=== PATIENT | male | born 1995 | race Caucasian/White ===

== ENCOUNTER 2024-06-18 02:57 | Inpatient (IN) | payer OTHER ==
[~2024-06-18] VITALS: Ht 182.9 cm; Wt 171.0 kg
[2024-06-18] VITALS (9 sets, daily range): BP systolic 138–175; BP diastolic 63–93
[2024-06-18] MEDS ORDERED: fentaNYL citrate 100 MCG/2 ML VIAL IV ONE (03:15)
[2024-06-18] MEDS ORDERED: DIPHTH,PERTUSS(ACELL),TET VAC 0.5 ML SYRINGE IM ONE (03:15)
[2024-06-18] MEDS ORDERED: CEFAZOLIN SODIUM 2 GM/20 ML SYR IV ONE (03:30)
[2024-06-18 03:46] LABS: HEMOGLOBIN 14.9 g/dL (12.0-18.0); MCV 90.4 fl (81-99)
[2024-06-18 03:49] LABS: BASOPHILS 1.3 % (0-2); EOSINOPHILS 0.3 % (0-6); HEMATOCRIT 44.5 % (35.0-50.0); LYMPHOCYTES 21.6 % (24-44); MCH 30.2 (27-36); MCHC 33.4 g/dl (30-36); MONOCYTES 5.9 % (0-12); NEUTROPHILS 70.9 % (39-80); PLATELET COUNT 324 K/uL (140-440); RBC 4.93 M/ul (4.3-5.7); RDW 13.7 (10.5-15.0)
[2024-06-18 04:01] LABS: ALBUMIN 3.6 g/dL (3.4-5.0); ALBUMIN/GLOBULIN RATIO 0.9 (1.1-2.4); ANION GAP 12.9 (7-21); BILIRUBIN, TOTAL 0.2 ng/dL (0.2-1.0); BUN/CREATININE RATIO 8.91 (6.0-28.6); CALCIUM 8.4 mg/dL (8.5-10.1); CREATININE, SERUM 1.01 mg/dL (0.70-1.30); POTASSIUM 3.9 mmol/L (3.5-5.1); PROTEIN, TOTAL 7.6 g/dL (6.4-8.2)
[2024-06-18 05:26] LABS: AMPHETAMINES, URINE NEGATIVE (NEGATIVE); BARBITURATES, URINE NEGATIVE (NEGATIVE); BENZODIAZEPINE, URINE NEGATIVE (NEGATIVE); BUPRENORPHINE, URINE NEGATIVE (NEGATIVE); CANNABINOID, URINE NEGATIVE (NEGATIVE); COCAINE, URINE POSITIVE (NEGATIVE); ECSTASY, URINE NEGATIVE (NEGATIVE); FENTANYL, URINE POSITIVE (NEGATIVE); METHADONE, URINE NEGATIVE (NEGATIVE); OPIATES, URINE NEGATIVE (NEGATIVE); OXYCODONE, URINE NEGATIVE (NEGATIVE); PHENCYCLIDINE, URINE NEGATIVE (NEGATIVE)
[2024-06-18] MEDS ORDERED: MIDAZOLAM HCL 2 MG/2 ML VIAL ONE (05:29)
[2024-06-18] MEDS ORDERED: fentaNYL citrate 100 MCG/2 ML VIAL ONE ×2 (05:29→06:05)
[2024-06-18] MEDS ORDERED: Ropivacaine HCl 0.5% 30 ML VIAL ONE (05:29)
[2024-06-18] MEDS ORDERED: LIDOCAINE HCL 2% 5 ML SDV ONE (05:29)
[2024-06-18] MEDS ORDERED: ROCURONIUM BROMIDE 50 MG/5 ML SYR ONE (06:05)
[2024-06-18] MEDS ORDERED: DEXAMETHASONE SOD PHOS 4 MG/ML VIAL ONE ×2 (06:05→06:38)
[2024-06-18] MEDS ORDERED: SUCCINYLCHOLINE IN 0.9% NACL 200 MG/10 ML SYRINGE ONE (06:05)
[2024-06-18] MEDS ORDERED: dexmedeTOMIDine HCl 200 MCG/2 ML VIAL ONE (06:05)
[2024-06-18] MEDS ORDERED: propofoL 200 MG/20 ML VIAL ONE (06:05)
[2024-06-18] MEDS ORDERED: CEFAZOLIN SOD 1,000 MG/10 ML VIAL ONE (06:18)
[2024-06-18] MEDS ORDERED: ondansetron HCL 4 MG/2 ML VIAL ONE (06:38)
[2024-06-18] MEDS ORDERED: ACETAMINOPHEN 1,000 MG/100 ML VIAL ONE (06:38)
[2024-06-18] MEDS ORDERED: IBLOOD GLUCOSE TEST STRIP 1 EA TEST VI PRN (07:15)
[2024-06-18] MEDS ORDERED: KETOROLAC TROMETHAMINE 30 MG/ML VIAL IV PRN (07:15)
[2024-06-18] MEDS ORDERED: fentaNYL citrate 50 MCG/ML SDV IV PRN (07:15)
[2024-06-18] MEDS ORDERED: ondansetron HCL 4 MG/2 ML VIAL IV PRN (07:15)
[2024-06-18] MEDS ORDERED: HYDROmorphone HCL 1 MG/ML SYR IV PRN (07:15)
[2024-06-18] MEDS ORDERED: NALOXONE HCL 0.4 MG SYR IV PRN (07:15)
[2024-06-18] MEDS ORDERED: KETOROLAC TROMETHAMINE 15 MG/ML VIAL IV PRN (07:30)
[2024-06-18] MEDS ORDERED: OXYCODONE HCL 5 MG TAB PO PRN (07:30)
--- NOTE | 2024-06-18 07:49 | NUR ---
06/18/24 0749 Maria Guadalupe Rosa 0731-PT ARRIVES TO PACU ON 6L VIA MASK. PT IS NONAROUSABLE TO VERBAL SITMULI. RESP EVEN AND UNLABORED. 0735-PT REACTIVE. RESP EVEN AND UNLABORED. PT SHAKES HEAD YES WHEN ASKED IS DOING OK. O2 SAT AT 100% ON 6L VIA MASK. ANOTHER PILLOW PLACED UNDER LEFT LEG. 0743-PT IS REACTIVE TO VERBAL STIMULI. RES[ EVEN AND UNLABORED. O2 SAT AT 100% ON L VIA MASK. ICE PLACED ON L ANKLE. 0748-PT RESTING WITH EYES CLOSED. RESP EVEN AND UNLABORED. O2 SAT AT 100% ON 6 L VIA MASK.
--- NOTE | 2024-06-18 08:22 | NUR ---
PT TO FLOOR VIA STRETCHER WITH AMINTA LEE. PT RESTING WITH EYES CLOSED BUT ANSWERS QUESTIONS APPROPRIATLY . TOOK SMALL SIP OF WATER. FAMILY SPOKE WITH HIM AND THEN LEFT TO LET HIM REST.
[2024-06-18] MEDS ORDERED: cefuroxime axetiL 500 MG TAB PO SCH (09:00)
[2024-06-18] MEDS ORDERED: SENNOSIDES 1 TAB PO SCH (09:00)
--- NOTE | 2024-06-18 09:15 | NUR ---
PT BACK FROM O/R FAMILY PRESENT X2. PT IS ALERT BUT DROWSY ANSWERS QUESTIONS APPROPRIATELY ORIENTED TO ROOM. BED ALARM IS SET FOR SAFETY AT THIS TIME. FRESH H20 TO BEDSIDE PT TOLERATING SIPS. DENIES PAIN OR NEEDS OF SLEEPS EASILY. SATS 90% ON ROOM AIR PULSE OX IN PLACE
--- NOTE | 2024-06-18 11:39 | NUR ---
PT ALERT NOW, AWAKE WATCHING TV ASKING WHEN HE CAN GO HOME. SNACK PROVIDED ANTICPATES LUNCH AT NOON. LEFT LE STARTING TO WAKE UP "HURTS A LITTLE' PAIN CONTROL EDUCATION PROVIDED UNDERSTANDING VERBALED.
[2024-06-18] MEDS ORDERED: SEVOFLURANE 250 ML BTL INH ONE (14:56)
--- NOTE | 2024-06-18 15:13 | NUR ---
PT RESTING IN BED WATCHING TV STATES THE SENSATION IS COMING BACK TO HIS LLE STARTING TO FEEL MORE NORMAL, HURTS A LITTLE. TORDOL ADMINISTERED EDUCATION PROVIDED. FRESH H20 TO BEDSDIE CALL LIGHT IN REACH
--- NOTE | 2024-06-18 15:21 | NUR ---
DR JONES CONTACTED REQUEST FOR P/T HE AGREES.
--- NOTE | 2024-06-18 16:33 | NUR ---
PT WORKS WITH P/T RETURNS TO RESTING IN BED LLE ELEVATED ON PILLOW.
--- NOTE | 2024-06-18 20:06 | NUR ---
RECEIVED REPORT FROM JUDI CONNELL. PT RESTING IN BED, (L) BOOT IN PLACE WITH ICE AT THIS TIME. PT DENIES ANY NEEDS AT THIS TIME. CALL LIGHT WITHIN REACH. PT STATES HE DOES HAVE SOME FRIEND COMING TO DELIVER FOOD INQUIRING ABOUT VISITING HOURS. PT ALLOWED TO REST - ASSURED WILL BE BACK LATER TO ASSESS. PT DENIES FURTHER NEEDS AT THIS TIME.
--- NOTE | 2024-06-18 20:30 | NUR ---
PT RESTING IN BED, FRIEND PRESENT AT BEDSIDE. PT TALKING WITH FRIEND ON THE PHONE. ASSESSMENT COMPLETED, FRESH ICE PACK APPLIED TO THE SURGICAL FOOT, BOOT REMAINS IN PLACE. PT C/O PAIN, PRN TORADOL GIVEN - SEE MAR. PT DENIES ANY FURTHER NEEDS AT THIS TIME, CALL LIGHT WITHIN REACH.
--- NOTE | 2024-06-18 23:14 | NUR ---
PT RESTING, AWAKENED WHEN ENTERED ROOM. PT STATES (L) ANKLE PAIN 7/10 AT THIS TIME, PRN MEDS GIVEN - SEE MAR. PT DENIES ANY FURTHER NEEDS AT THIS TIME. CALL LIGHT WITHIN REACH. WILL CONTINUE TO MONITOR.
[2024-06-19] VITALS (9 sets, daily range): BP systolic 140–153; BP diastolic 56–92
--- NOTE | 2024-06-19 00:13 | NUR ---
PT RESTING IN BED AT THIS TIME, EYES CLOSED, DID NOT AWAKEN WHEN OPENED DOOR, ALLOWED TO REST. RESPIRATIONS UNLABORED. CALL LIGHT WITHIN REACH. WILL CONTINUE TO MONITOR.
--- NOTE | 2024-06-19 03:14 | NUR ---
PT RESTING AT THIS TIME, NO NEEDS. CALL LIGHT WITHIN REACH. RESPIRATIONS UNLABORED. WILL CONTINUE TO MONITOR.
--- NOTE | 2024-06-19 04:47 | NUR ---
PT RESTING IN BED, SNORING WHEN ENTERED ROOOM, PT DID NOT AWAKEN. CALL LIGHT WITHIN REACH, ALLOWED TO SLEEP. WILL CONTINUE TO MONITOR.
--- NOTE | 2024-06-19 07:43 | NUR ---
PT WATCHING TV AT TIME OF SHIFT REPORT. AGREES HE IS COMFORTABLE, DENIES QUESTIONS OR CONCERNS. FRESH H20 TO BEDSIDE CALL LIGHT IN REACH
--- NOTE | 2024-06-19 08:25 | NUR ---
Patient was resting in bed. Requested to take a nap.
--- NOTE | 2024-06-19 09:18 | NUR ---
PT WORKING WITH P/T. HE IS COOPERATIVE AND ACTIVELY PARTICIPATES
[2024-06-19] MEDS ORDERED: OXYCODONE HCL5 MG PO (09:19)
[2024-06-19] MEDS ORDERED: CEFUROXIME500 MG PO (09:19)
[2024-06-19] MEDS ORDERED: SENNA LAX8.6 MG PO (09:19)
--- NOTE | 2024-06-19 10:23 | NUR ---
ALERT AND ORIENTED IN BED. STATES HE LIVES IN SINGLE LEVEL HOME WITH STAIRS TO GET INSIDE. NOTIFIED BY PT THAT PATIENT IS VERY UNSTABLE ON CRUTCHES AND THEY DO NOT FEEL HE IS READY TO DC. LIKELY NEED FOR WALKER TO ASSIST WITH MOBILITY. PATIENT STATES HE HAS SPOKEN WITH HIS MOTHER, SHE COULD COME PICK HIM UP TOMORROW AND TAKE HIM TO HER PLACE IN [facility]. SHE DOES HAVE STAIRS TO GET INSIDE, BUT HE STATES THERE ARE HANDRAILS. STATES THE BED THERE IS ALSO HIGHER THAN HIS BED AT HOME, SO IT SHOULD BE EASIER FOR HIM TO GET IN AND OUT OF. HE STATES SHE WILL BE UNABLE TO PICK HIM UP UNTIL TOMORROW AT THE SOONEST. PT PLANS TO RE-EVALUATE HIM THIS AFTERNOON. INFORMATION FOR [employer] FOR WALKER PROVIDED. PATIENT STATES HE DOES HAVE INSURANCE, BUT IS UNSURE WHAT IT IS. HIS PCP IS IN [facility]. DENIES DIFFICULTY PAYING UTILITES, OBTAINING FOOD OR MEDS.
--- NOTE | 2024-06-19 11:00 | NUR ---
REVIEWED PAIN CONTROL AND MEDS AVAILABLE WITH PT. UNDERSTANDING VERBALIZED. PT DESCRIBES AN ACHE IN HIS LLE STATES IT'S TOLERABLE AND YES PAIN MEDS ARE EFFECTIVE. RESTING IN BED LLE ELEVATED ON PILLOWS AT THIS TIME. FRESH H20 TO BEDSIDE CALL LIGHT IN REACH
--- NOTE | 2024-06-19 11:56 | NUR ---
VISITED DURING SPIRITUAL CARE ROUNDS. PT IN OVERALL GOOD SPIRITS, NO IMMEDIATE NEEDS. VALIDATION MANAGER PROVIDED SUPPORTIVE PRESENCE, HOSPITALITY, PRAYER, FACILITATED INTERACTION WITH THERAPY ANIMAL. PT EXPRESSED GRATITUDE.
--- NOTE | 2024-06-19 12:05 | NUR ---
PT WORKING WITH P/T AT THIS TIME. USING A WALKER INSTEAD OF CRUTCHES TO SEE IF PT HAS BETTER BALANCE THAT WAY.
--- NOTE | 2024-06-19 13:02 | OR ---
[facility] [address] [place], [place] [address] Signed DATE OF OPERATION: 06/18/2024 SURGEON: Nathan Harp MD PREOPERATIVE DIAGNOSIS: Fracture dislocation, grade 3 ankle, left. POSTOPERATIVE DIAGNOSIS: Fracture dislocation, grade 3 ankle, left. PROCEDURES PERFORMED: 1. Left ankle irrigation and debridement of skin, subcutaneous tissue and bone. 2. Open reduction and internal fixation of lateral malleolus. 3. Open reduction and internal fixation of syndesmosis. FITTER HAND: Lias Ovalles PA-C. Lisa was present and critical for all portions of procedure. ANESTHESIA: General. BLOOD LOSS: 100 mL. TOURNIQUET TIME: Zero. IMPLANTS: Seven hole one-third tubular plate with seven screws and tightrope. BRIEF HISTORY: Daylin is a 28-year-old gentleman who was at a local drinking facility when he twisted on his foot, ending up with an open fracture dislocation of the ankle. He was transported to the hospital where radiographs showed the fracture dislocation and a large amount of bone sticking through the wound medially. Risks, benefits, and alternatives of surgery were discussed with him. He understood and wished to proceed. DESCRIPTION OF PROCEDURE: Once consent was obtained, he was taken to the operating room. After adequate Electronically Signed By: NATHAN HARP MD 06/19/24 1302 PATIENT NAME: DAYLIN DOTSON OPERATIVE REPORT DATE OF : [birth year] REPORT #: [id number] PHYSICIAN: NATHAN HARP MD PCP: NO PRIMARY CARE PHYSICIAN REPORT IS CONFIDENTIAL AND NOT TO BE RELEASED WITHOUT AUTHORIZATION [facility] [address], [place] [address] Signed anesthesia he was placed on the operating room table. A well-padded proximal thigh tourniquet was placed. The leg was then prepped and draped in a standard sterile fashion. There was no significant active bleeding, so we elected to leave the tourniquet down to improve blood flow. The ankle was distracted and the medial laceration which measured 12 cm was sharply debrided and irrigated with 3 L normal saline followed by Surgiphor followed by another L of normal saline. The ankle was then reduced and a lateral approach was made to the fibula, carried through skin and subcutaneous tissue. The periosteum was already stripped over 90% of it and the remainder was elevated. The fracture was then reduced. It was essentially a transverse fracture and no inter frag lag screw could be placed. The fracture was held in reduction and a seven hole plate was fitted to the lateral malleolus and held with a screw in the proximal end and a screw in the distal end. This was then checked using image intensifier and found to be good. The remaining proximal screws were filled with 3.5 mm screws. The two distal screws were filled with fully-threaded cancellous 4-0 screws. Excellent purchase in his bone was obtained. Good reduction was noted. We then checked his ankle stability and his medial side opened significantly. I then repaired the deltoid with #1 FiberWire and attempted another external rotation. Knee was still a little bit unstable. We then placed a tightrope through one of the screw holes in the plate, tightening it up with the ankle in nuchal rotation. The ankle mortise was quite stable after this. The medial soft tissues were re-evaluated. I elected not to put an anchor in to repair the deltoid due to the large open dislocation. The both wounds were closed in layers using 2-0 Monocryl followed by awais for the skin. Prior to this, we did re-irrigate both sides with Surgiphor and normal saline. Both wounds were dressed with Acticoat-7 dressings, Zak wrap, and he was placed in a fracture boot. He tolerated the procedure well. All sponge, needle, and instrument counts were correct. Nathan Harp MD BA/ZAIREL /[id number] Electronically Signed By: NATHAN HARP MD 06/19/24 1302 PATIENT NAME: DAYLIN DOTSON OPERATIVE REPORT DATE OF : [birth year] REPORT #: [id number] PHYSICIAN: NATHAN HARP MD PCP: NO PRIMARY CARE PHYSICIAN REPORT IS CONFIDENTIAL AND NOT TO BE RELEASED WITHOUT AUTHORIZATION [address] [address] Signed Copies: ~ Electronically Signed By: NATHAN HARP MD 06/19/24 1302 PATIENT NAME: DAYLIN DOTSON OPERATIVE REPORT DATE OF : [birth year] REPORT #: [id number] PHYSICIAN: NATHAN HARP MD PCP: NO PRIMARY CARE PHYSICIAN REPORT IS CONFIDENTIAL AND NOT TO BE RELEASED WITHOUT AUTHORIZATION
--- NOTE | 2024-06-19 14:42 | NUR ---
PT ASSISTED TO CHAIR USES WALKER NWB. BED LINENS CHANGED. ASSISTED PT TO WASH HIS BACK, LEG, AND AREA'S HE IS UNABLE TO REACH, HE INSISTS HE CAN DO HIS OWN JENNIFER AND OTHER CARES. WARM BATH CLOTHES PROVIDED. ORAL CARE ITEMS IN REACH DEODORANT, COMB ETC SUPPLIED.
--- NOTE | 2024-06-19 15:08 | NUR ---
Patient took a bed bath with minimal assistance. Bed linens were changed. Deodorant and oral care supplies set up. Clean gown provided.
--- NOTE | 2024-06-19 15:23 | NUR ---
PT UP WITH P/T
--- NOTE | 2024-06-19 18:52 | NUR ---
Patient urinal emptied and rinsed. Left ankle elevated with an ice pack on.
--- NOTE | 2024-06-19 20:03 | NUR ---
PT RESTING IN BED, FAMILY WAS PRESENT IN THE ROOM. PT HAS [place] PAID LEAVE PAPERWORK HE WOULD LIKE FILLED OUT, WILL FOLLOW-UP WITH MD TOMORROW MORNING IF THAT IS SOMETHING HE CAN FILL OUT FOR HIM. PRIMARY RN NOTIFIED. PRN TORADOL GIVEN FOR 6/10 PAIN TO (L) ANKLE. OTHER MEDS GIVEN - SEE MAR. PT DENIES ANY FURTHER NEEDS, CALL LIGHT WITHIN REACH.
--- NOTE | 2024-06-19 22:10 | NUR ---
pt in bed, room air, hob elevated, lungs clear, abd large LBM yesterday. L leg edema to ankles/feet, warm to tocuh. alfredo wrap dressing in place, ortho boot inplace, ice to area. pleasant and cooperative, was medicated earlier. No c/o pain at this time
--- NOTE | 2024-06-19 23:22 | NUR ---
AWAKE, SITTING UP POSITION IN BED. L LEG ORTHO BOOT IN PLACE ICE TO AREA, ELEVATED. NO C/O PAIN. VISITING WITH FAMILY
[2024-06-20] VITALS (11 sets, daily range): BP systolic 136–153; BP diastolic 62–96
--- NOTE | 2024-06-20 02:08 | NUR ---
AWAKE, WATCHING TV AND PLAYING ON HIS PHONE. C/O L LEG PAIN, MEDICATED WITH 10MG PO DILAUDID. L LEG MIGDALIA WRAP DRESSING IN PLACE, EDEMA TO TOES, FAINT PEDAL PULSE, WARM TO TOUCH. ORTHO BOOT INPLACE, ICE TO AREA, ELEVATED WITH 3 PILLOWS. TOLERATING POP AND LIQUIDS, NO C/O N/V. NO VOID. PLEASNT AND COOPERATIVE
--- NOTE | 2024-06-20 03:05 | NUR ---
RN IN ROOM TO RESPOND TO CALL LIGHT - PT REPORTS PAIN IN MEDIAL LOWER HEEL OF LEFT FOOT. INSPECTION UNDER EDGE OF DRESSING SHOWS SKIN INTACT WITHOUT CONCERN, DISTAL PART OF INCISION IN AREA OF NEW PAIN. PT REPORTS INCREASING FEELING OF FOOT RETURNING - EDUCATED ON SENSATION POST OP. DENIES FURTHER NEEDS AT THIS TIME. BOOT REMAINS IN PLACE AND ELVATED ON PILLOWS IN BED.
--- NOTE | 2024-06-20 03:30 | NUR ---
Awake, playing with phone, no further c/o pain. L leg elevated with pillows, ice to area.
--- NOTE | 2024-06-20 04:43 | NUR ---
awake, watching tv, c/o 7/10 L ankle pain, medicated with Toradol 15mg IV. L leg ortho boot in place, ice to area, elevated with pillows, repositions self in bed
--- NOTE | 2024-06-20 05:12 | NUR ---
15MG TORADOL IV GIVEN. PT CAN HAVE UP TO 30MG. WAS GIVEN 15MG A FEW MINUTES AGO WITH NO PAIN RELIEF. ICE TO L ANKLE, DRESSING CDI, ORTHO BOOT IN PLACE
--- NOTE | 2024-06-20 06:36 | NUR ---
Pt c/o 9/10 L leg pain, very anxious. medicated with Oxycodone 10mg po. ortho boot in place, ice to area, elevated in pillows
--- NOTE | 2024-06-20 08:00 | NUR ---
PATIENT IN BED AT THIS TIME. WHITE BOARD UPDATED. CALL LIGHT IN REACH. NO FURTHER NEEDS AT THIS TIME.
--- NOTE | 2024-06-20 10:00 | NUR ---
Admin oxycodone 10mg po at this time for reports of 9/10 left ankle pain. Fresh ice placed over LLE. Patient sitting up in chair at this time. Fresh water and call light within reach of pt.
--- NOTE | 2024-06-20 11:05 | NUR ---
Admin toradol 15mg iv at this time for reports of 6/10 left ankle pain.
--- NOTE | 2024-06-20 11:07 | NUR ---
Admin toradol 15mg iv for reports of 6/10 left ankle pain.
--- NOTE | 2024-06-20 11:49 | NUR ---
PATIENT UP IN CHAIR. NO NEEDS AT THIS TIME. CALL LIGHT IN REACH.
--- NOTE | 2024-06-20 14:09 | NUR ---
PATIENT ALERT AND ORIENTED IN RECLINER. STATES HE IS STILL STRUGGLING TO GET AROUND WITH MOVEMENT. STATES HE IS HAVING RAMP BUILT, HAS A KNEE SCOOTER ORDERED, WALKER, AND TUB BENCH THAT HIS MOTHER ORDERED FOR PATIENT FOR HOME. CONTINUE TO PLAN TO WORK WITH PT TODAY AND TOMORROW.
--- NOTE | 2024-06-20 14:17 | NUR ---
Patient back in bed from chair, no notable distress. Patient report's 7/10 Left ankle pain. Admin oxycodone 10mg po at this time. Fresh ice over wound site. CMS remains intact, boot in place to LLE.
--- NOTE | 2024-06-20 17:19 | NUR ---
Toradol 30mg iv admin for reported 7/10 LLE pain.
--- NOTE | 2024-06-20 19:33 | NUR ---
SHIFT REPORT RECEIVED FROM DAYSLAFT AMINTA OSBORNE AT BEDSIDE, pt RESTING QUIETLY IN BED WITH EYES CLOSED. ON RA, RR EVEN AND UNLABORED. AWOKE TO VOICE, MIGDALIA WRAP DRESSING TO LLE C/D/I, ELEVATED IN BED WITH ORTHO BOOT IN PLACE AND FRESH ICE PACK ON TOP OF DRESSING. IV SITE WNL, SALINE LOCKED. NO NEEDS OR CONCERNS VERBALIZED, CALL LIGHT IN REACH.
--- NOTE | 2024-06-20 20:25 | NUR ---
ASSESSMENT COMPLETE, SCHEDULED MEDS GIVEN-SEE EMAR. pt A/OX4, RATES PAIN 11/23. LLE ELEVATED IN BED WITH ICE PACK IN PLACE OVER DRESSING WITH BOOT IN PLACE. pt ABLE TO WIGGLE TOES, REPORTS SOME NUMBNESS AND TINGLING TO LLE. SKIN PINK IN COLOR AND WARM TO THE TOUCH, CAP REFILL WNL. MIGDALIA DRESSING C/D/I. VSS, FRESH ICE WATER GIVEN. NO ADDITIONAL NEEDS OR CONCERNS VERBALZIED, CALL LIGHT IN REACH.
[2024-06-20] MEDS ORDERED: GABAPENTIN 300 MG CAP PO SCH (21:00)
[2024-06-20] MEDS ORDERED: ASPIRIN 325 MG TAB PO SCH (21:00)
--- NOTE | 2024-06-20 21:37 | NUR ---
ROUNDED ON pt, pt RESTING IN BED. NO NEEDS OR CONCERNS VEBALIZED AT THIS TIME WHEN ASKED. CALL LIGHT IN REACH.
--- NOTE | 2024-06-20 23:35 | NUR ---
rounded on pt, pt resting quietly in bed. on ra, rr even and unlabored. new ice pack on top of left ankle dressing, ortho boot remains in place. elevated in bed. no additional needs or concerns verbalized when asked.
[2024-06-21] VITALS (10 sets, daily range): BP systolic 129–154; BP diastolic 70–106
--- NOTE | 2024-06-21 01:40 | NUR ---
rounded on pt, pt awake and playing on cell phone. reports 6-7/10 pain, prn pain medication given-see emar. focused assessment complete, no acute changes. fresh ice water, soda provided along with warm blanket. no additional needs, fresh ice pack provided recently by courtney barlow.
--- NOTE | 2024-06-21 02:10 | NUR ---
IN ROOM AND REASSESSED pt PAIN, pt REPORTS PAIN "IS BETTER", DENIES NEEDS OR CONCERNS. CALL LIGHT IN REACH. LLE REMAINS ELEVATED WITH ORTHO BOOT IN PLACE AND ICE THERAPY. CALL LIGHT IN REACH.
--- NOTE | 2024-06-21 04:08 | NUR ---
rounded on pt, pt awake and resting in bed. ortho boot remains in place, ice therapy as tolerated. lle remains elevated in bed. certified surgical technologist to bring fresh soda to pt per pt request, no additional needs or concerns, pt stats, "i think this is the best sleep i've gotten in awhile". call light in reach, will continue to monitor.
--- NOTE | 2024-06-21 05:50 | NUR ---
PRN PAIN MEDICATION GIVEN-SEE EMAR. FRESH ICE PACK PROVIDED OVER MIGDLAIA WRAP DRESSING TO LEFT ANKLE, ORTHO BOOT REMAINS IN PLACE, NO ACUTE CHANGES NOTED TO LLE. CALL LIGHT IN REACH, pt STATES, "I'VE BEEN DOING LEG EXERCISES LIKE THEY SAID TO DO". LLE REMAISN ELEVATED IN BED WITH PILLOWS.
--- NOTE | 2024-06-21 07:58 | NUR ---
Patient resting in bed, eyes closed, respirations even and non labored. Patient has no notable distress. Personal supplies and call light within reach.
--- NOTE | 2024-06-21 09:05 | NUR ---
Patient's urinal emptied and rinsed. PT entered room. Help was offered and declined.
--- NOTE | 2024-06-21 09:19 | NUR ---
Patient working with physical therapy.
--- NOTE | 2024-06-21 09:51 | NUR ---
SPOKE WITH PATIENT REGARDING POTENTIAL DISCHARGE TODAY. STATES HE WOULD PREFER TO STAY ONE MORE NIGHT IN FACILITY BECAUSE HIS MOM CAN NOT PICK HIM UP UNTIL TOMORROW AND HE WOULD HAVE TO SLEEP ON HIS UNCLE'S COUCH IF HE GOES THERE. INFORMED ONCE DR. JONES STATES HE IS MEDICALLY CLEARED, HE NO LONGER MEETS CRITERIA TO BE IN THE HOSPITAL AND WILL HAVE TO DISCHARGE. INSTRUCTED TO CALL AND HAVE SOMEONE TAX ECONOMIST A WALKER AT [facility] FOR DISCHARGE SO SHE HAS WHAT HE NEEDS. TOLD HIM TO SPEAK WITH DR. JONES REGARDING DC IF HE FEELS HE IS NOT READY FOR DC TODAY.
--- NOTE | 2024-06-21 13:15 | NUR ---
ERYN IRVING, DISCUSSES POTENTIAL NEED FOR SNF. DISCUSSED SNF OPTION WITH PATIENT. STATES HIS MOTHER HAS MEDICAL EXPERIENCE AND WILL HAVE WHAT HE NEEDS. HE DOES NOT WANT TO GO TO A SNF, HE IS STILL PLANNING ON DISCHARGING WITH HIS MOTHER TOMORROW. INFORMED HIM INSURANCE INFORMATION IS STILL NEEDED AND REQUEST HE HAVE SOMEONE SEND HIM HIS POLICY INFORMATION SO IT MAY BE ENTERED BY ADMITTING. STATES HE WILL TEXT HIS AUNT TO HAVE HER SEND THE INFORMATION TO HIM. DENIES OTHER NEEDS AT THIS TIME.
--- NOTE | 2024-06-21 13:15 | NUR ---
Patient sitting up in chair, no distress. LLE elevated, boot in place. Patient denies needs at this time. Call light within reach.
--- NOTE | 2024-06-21 14:19 | NUR ---
Patient back in bed, awake with no distress. Pt reports 6/10 LLE pain. Admin oxycodone 10mg po at this time. Cms intact to LLE, boot in place.
--- NOTE | 2024-06-21 14:25 | NUR ---
UR CONCURRENT REVIEW: [facility] [place] MEETS INPATIENT CRITERIA FOR OPEN FRACTURE WITH ORIF. CHANGE TO INPT STATUS PER MD SELF PAY OBS TO INPT 06/21/24 @ 130 NO AUTH REQUIRED PATIEN IS SELF PAY DISCHARGE TO HOME WHEN STABLE 06/23/24
--- NOTE | 2024-06-21 14:46 | NUR ---
Patient worked with PT, sat up in their chair, and later returned to bed. Bed bath supplies were brought in. Some assist was needed for patient's back and legs but was independent for the rest. Bed linens were changed.
--- NOTE | 2024-06-21 15:45 | NUR ---
REPORT RECEIVED FROM PREVIOUS NURSE DYLON. PT. RESTING IN BED WITH NO NEEDS AT THIS TIME. CALL LIGHT WITHIN REACH.
--- NOTE | 2024-06-21 16:48 | NUR ---
Patient's urinal emptied, rinsed, and returned to bedside table. Fresh ice water and sprite were given.
--- NOTE | 2024-06-21 18:15 | NUR ---
Patient was given a clean gown. Urinal was emptied and rinsed. They refused dinner but ate cheese sticks and snacks from friends.
--- NOTE | 2024-06-21 18:15 | NUR ---
ROUNDING ON PATIENT. DENIES ANY NEEDS AT THIS TIME CALL LIGHT WITHIN REACH.
--- NOTE | 2024-06-21 19:30 | NUR ---
RECEIVED REPORT FROM AMINTA HERNANDES. PT RESTING IN BED, SLEEPING BETWEEN CARE. DENIES NEEDS AT THIS TIME.
--- NOTE | 2024-06-21 20:00 | NUR ---
PT RESTING IN BED. REPORTS LEFT ANKLE PAIN 11/23-PRN OXYCODONE ADMINISTERED AND NEW ICE BAG PLACED. LSC. HRR. BTA, REPORTS CONSTIPATION AND WANTS TO TRY BR A LITTLE LATER. VOIDS VIA URINAL-UO CLEAR AND YELLOW. LLE W/ NUMBNESS AND TINGLING. LLE MIGDALIA WRAP CDI. PT UNABLE TO PLANTAR/DORSI FLEX. WIGGLES TOES, LLE PINK AND WARM. SURGICAL WALKING BOOT TO LLE. NWB LLE. USES CRUTCHES TO AMBULATE. RAC SL WNL. USES CALL LIGHT APPROPRIATELY.
--- NOTE | 2024-06-21 20:52 | NUR ---
RADIAL DRILL PRESS SET UP OPERATOR OBTAINED VITALS. NO NEW I&O AT THIS TIME. PT STATES NO NEEDS AT THIS TIME. CALL LIGHT WITHIN REACH.
--- NOTE | 2024-06-21 22:28 | NUR ---
PT APPEARS ASLEEP. CALL LIGHT WITHIN REACH.
--- NOTE | 2024-06-22 00:35 | NUR ---
PT SLEEPING. APPEARS COMFORTABLE.
--- NOTE | 2024-06-22 02:55 | NUR ---
CALL LIGHT ANSWERED. PT NEEDED URINAL EMPTIED. PT REQUESTED A PAIN MED, RN NOTIFED. ICE WATER REFILLED. PT STATES NO FURTHER NEEDS AT THIS TIME. CALL LIGHT WITHIN REACH.
--- NOTE | 2024-06-22 03:07 | NUR ---
PT AWAKE, REQUESTING PAIN MED. PRN OXYCODONE ADMINISTERED. PT STILL HAS N/T TO LLE, UNCHANGED. ORTHO BOOT IN PLACE. NEW ICE BAG PLACED TO LEFT ANKLE.
--- NOTE | 2024-06-22 05:31 | NUR ---
SLEEPING SOUNDLY. APPEARS COMFORTABLE.
[2024-06-22 05:37] VITALS: BP 147/75
--- NOTE | 2024-06-22 05:40 | NUR ---
PARKS AND RECREATION MANAGER OBTAINED VITALS AND I&O. URINAL EMPTIED. PT STATES NO FURTHER NEEDS AT THIS TIME. CALL LIGHT WITHIN REACH.
[2024-06-22 05:46] VITALS: BP 147/75
--- NOTE | 2024-06-22 07:39 | NUR ---
REPORT RECEIVED FROM SENIOR PROGRAM PLANNER RN. PATIENT RESTING IN BED WITH BOOT IN PLACE. ICE TO LEFT LOWER EXTERMITY. PATIENT C/O PAIN 11/23 TO LLE. PRN ADMINSTERED. PATIENT DENIES ANY FURTHER NEEDS AT THIS TIME. CALL LIGHT WITHIN REACH.
--- NOTE | 2024-06-22 08:45 | NUR ---
INTO SEE PATIENT. PATIENT UP IN BED ON HIS PHONE. PATIENT SAYS MOM IS HEADING TO [place] TODAY FROM [place]. HE SAYS SHE IS COMING TO DISCUSS OPTIONS OF INPATIENT REHAB VERSUS GOING HOME BUT HE THINKS SHE IS JUST COMING TO GET HIM TO TAKE HIM HOME. THEY HAVE CALLED THE LOCAL FIRE DEPARTMENT FOR LIFT ASSIST IF HE NEEDS IT WHEN HE GETS TO THE [place]IDENCE. HE TOLD ME HIS PCP IS LORENA HINES. HE DOES NOT KNOW OF ANY ORTHO IN THE AREA TO CALL HIS MOTHER ABOUT THIS. MOTHER NAME ALVIN PHONE NUMBER [phone]. WILL CALL [phone] 06/22/24 [employer] CALLED ABOUT INSURANCE. TALKED TO [employer] INSURANCE/LIDAR TECHNICIAN SAYS PATIENT HAS BEEN AN EMPLOYEE SINCE 2022 BUT JUST RECENTLY SIGNED UP FOR BENEFITS AND THAT HIS BENEFITS DONT TAKE IN EFFECT UNTIL 07/15/24. KAREN MEDICAID COORDINATOR AT THE HOSPITAL DOWN TO SEE IF PATIENT QUALIFIES. PATIENT MAKES $5,000 A MONTH AND DOES NOT QUALIFY. [id number] 06/22/24 CALLED ALVIN (MOTHER) SHE WAS JUST GETTING READY TO LEAVE TO HEAD TO [place]. SHE SAYS SHE HAS A RAMP COMING FROM [employer] THAT WILL BE AT THE HOUSE TOMORROW AND WILL BE SETUP. IT IS AN 8FT RAMP. DISCUSSED CONCERNS OF RAMP THAT OT/PT HAD. SHE SAYS BARIATRIC WHEELCHAIR WILL FIT ON RAMP. THEY HAVE TWO NEIGHBORS WILLING TO BE THERE WHEN PATIENT ARRIVES AND HAVE ALREADY CONTACTED NON EMERGENT LINE TO LET THEM KNOW THEY MAY NEED TO DO A LIFT ASSIST. SHE SAYS SHE HAS GATHERED AT BARIATRIC WHEELCHAIR, BARIATRIC WALKER, [employer], TUB BENCH, KNEE SCOOTER. MOTHER HAS WORKED FOR PCP LORENA HINES SO SHE IS AWARE OF THE SITUTAION. MOTHER WAS GOING TO CONTACT [facility]ISA [facility] OFFICE TO SCHEDULE A FOLLOW UP APPOINTMENT.
--- NOTE | 2024-06-22 08:50 | NUR ---
PATIENT RESTING IN BED. REPORTS HE IS NOT HUNGRY THIS AM AND DOES NOT WISH TO HAVE BREAKFAST. PATIENT WITH BOOT IN PLACE TO LLE. POSITIVE CMS TO BLLE. PATIENT LUNGS CTA, HEART TONES REGULAR. PATIENT DENIES ANY FURTHER NEEDS. CALL LIGHT WITHIN REACH.
--- NOTE | 2024-06-22 08:56 | NUR ---
Fresh ice water given. Patient refused breakfast but has lots of snacks in the room. Patient reported they just wanted to sleep. AMINTA Oden notified and entered room.
[2024-06-22 09:04] VITALS: BP 149/76
[2024-06-22 09:05] VITALS: BP 149/76
--- NOTE | 2024-06-22 09:44 | NUR ---
PATIENT RESTING IN BED, RN OFFERED TO ASSIST PATIENT TO THE RECLINER. PATIENT REFUSED WANTING TO GET OUT OF BED AT THIS TIME. REPORTS HE WILL TRY FOR LUNCH TIME. DENIES ANY FURTHER NEEDS. CALL LIGHT WITHIN REACH.
--- NOTE | 2024-06-22 10:38 | NUR ---
NEW BAG OF ICE APPLIED TO LLE. URINAL EMPTIED. PATIENT WITH NO FURTHER NEEDS AT THIS TIME. CALL LIGHT WITHIN REACH.
--- NOTE | 2024-06-22 10:55 | NUR ---
PCP APPOINTMENT MADE FOR [facility]. 07/25/24 AT 3:00 PM
--- NOTE | 2024-06-22 11:10 | NUR ---
OCCUPATIONAL THERAPY IN ROOM WITH PATIENT AT THIS TIME.
--- NOTE | 2024-06-22 11:12 | NUR ---
Patient took a shower with OT. Help was offered and denied.
--- NOTE | 2024-06-22 11:24 | NUR ---
DR. LISA MCMAHAN OFFICE CALLED ASKED FOR A REFERRAL. [facility]AM[facility] VELAZQUEZ. WILL FAX OVER ONCE DOCUMENTATION IS READY. FAX NUMBER [phone].
--- NOTE | 2024-06-22 12:06 | NUR ---
PATIENT MOTHER AWARE THAT HE IS DISCHARGING TODAY AND THAT SHE HAS AN ADA ROOM WITH WHEELCHAIR. NO FUTHER QUESITIONS AT THIS TIME. WILL FAX REFERRAL OVER ONCE DC SUMMARY FINISHED.
--- NOTE | 2024-06-22 12:16 | NUR ---
PATIENT SITTING UP IN RECLINER EATING LUNCH. C/O PAIN PRN ADMINSTERED. SEE MAR. ICE WATER REFILLED. PATIENT DENIES ANY FURTHER NEEDS. CALL LIGHT WITHIN REACH.
[2024-06-22] MEDS ORDERED: ASPIRIN325 MG PO (12:19)
[2024-06-22] MEDS ORDERED: GABAPENTIN300 MG PO (12:19)
[2024-06-22] MEDS ORDERED: CEFUROXIME500 MG PO (12:19)
[2024-06-22] MEDS ORDERED: OXYCODONE HCL5 MG PO (12:19)
--- NOTE | 2024-06-22 12:34 | NUR ---
LIBRARY CATALOGING TECHNICIAN PACKET GIVEN.
--- NOTE | 2024-06-22 12:42 | NUR ---
REFERRAL SENT TO DR. LISA MCMAHAN OFFICE.
[2024-06-22] MEDS ORDERED: ACETAMINOPHEN 500 MG TAB PO PRN (12:45)
[2024-06-22 13:25] VITALS: BP 148/85
[2024-06-22 13:30] VITALS: BP 148/85
--- NOTE | 2024-06-22 13:35 | NUR ---
PT NOT AVAILABLE FOR VISIT. PROVIDED PRAYER.
--- NOTE | 2024-06-22 13:40 | NUR ---
PT SITTING UP IN THE CHAIR AT THIS TIME, SCHEDULE MEDS GIVEN - SEE MAR. PT DENIES ANY FURTHER NEEDS AT THIS TIME. CALL LIGHT WITHIN REACH.
--- NOTE | 2024-06-22 13:56 | NUR ---
Patient returned to bed from their chair. Urinal was emptied and rinsed.
[2024-06-22] MEDS ORDERED: IBUPROFEN 600 MG TAB PO SCH (14:00)
--- NOTE | 2024-06-22 14:42 | NUR ---
ROUNDING ON PATIENT. DENEIS ANY NEEDS AT THIS TIME. CALL LIGHT WITHIN REACH.
--- NOTE | 2024-06-22 16:06 | NUR ---
PATIENT RESTING IN BED AT THIS TIME. SCHEDULED MEDICATIONS ADMISNTERED. DENIES ANY FURTHER NEEDS. CALL LIGHT WITHIN REACH.
--- NOTE | 2024-06-22 17:58 | NUR ---
PT MOTHER ARRIVED TO THE FLOOR, STATING THAT THE HOTEL THEY RESERVED DID NOT HAVE A DOUBLE ADA ROOM. THEY WERE REQUESTING TO STAY IN THE HOSPITAL ANOTHER NIGHT. CALL TO CASE [employer], PT IS CURRENTLY PRIVATE PAY, INFORMED THEM FOR PATIENT TO STAY IN HOSPITAL ANOTHER NIGHT WOULD COST THEM ANOTHER $2800 MINIMUM, THEN ADDITIONAL CHARGES FOR MEDS/CARES/ETC. THE MOTHER EXPRESSED SHE WOULD CALL THE HOTEL AND SEE IF THEY HAD ANY OTHER HOTEL AVAILABILITY AT THIS TIME. THEY DID GET A SINGLE BED ADA ROOM ALONG WITH A ROOM FOR THEMSELVES. THEY DID AGREE TO DISCHARGE HOME, THEY WILL GET PRESCRIPTION AT [facility] AND WILL TAKE HIS NARCOTIC THERE TO GET FILLED BEFORE GOING TO HOTEL THE PHARMACY IS NOT OPEN VERY LATE. VS STABLE, IV REMOVED. PT LEFT IN WHEELCHAIRE WITH DIE SET UP WORKER.
== END 2024-06-22 17:58 | disposition home or self-care (01) | DRG 493 ==
LOC: ED 02:57 → MS 02:58
PROVIDERS: Family Medicine; ADMIT Specialist; ATTEND Specialist
PROC: 0SSG04Z Reposition Left Ankle Joint with Internal Fixation Device, Open Approach (ICD-10-PCS; 2024-06-18)
PROC: 0QSK04Z Reposition Left Fibula with Internal Fixation Device, Open Approach (ICD-10-PCS; principal; 2024-06-18 05:30)
DX: S82.6 Fracture of lateral malleolus (principal); S92.102B Unspecified fracture of left talus, initial encounter for open fracture; F32.A Depression, unspecified; M17.11 Unilateral primary osteoarthritis, right knee; Z96.611 Presence of right artificial shoulder joint; I25.10 Atherosclerotic heart disease of native coronary artery without angina pectoris; E78.00 Pure hypercholesterolemia, unspecified; Z96.661 Presence of right artificial ankle joint; Z96.643 Presence of artificial hip joint, bilateral; Z88.2 Allergy status to sulfonamides; Z91.048 Other nonmedicinal substance allergy status; Z98.1 Arthrodesis status; Z98.890 Other specified postprocedural states; Z79.899 Other long term (current) drug therapy; W18.30XA Fall on same level, unspecified, initial encounter; E66.9 Obesity, unspecified; Z71.6 Tobacco abuse counseling; Z71.41 Alcohol abuse counseling and surveillance of alcoholic
CPT/HCPCS: 01462; 36415; 64447; 73600; 73610; 80053; 80307; 85025; 90715; 96375; 96376; 97110; 97116; 97161; 97165; 97530; 97535; A9270; C1713; G0378; G0480; J0131; J0330; J0690; J1100; J1885; J2003; J2250; J2405; J2704; J2795; J3010; J3490